=== PATIENT | female | born 1995 | race Caucasian/White ===

== ENCOUNTER 2016-10-29 19:47 | Emergency (ER) | payer BC ==
[~2016-10-29] VITALS: Ht 157.5 cm; Wt 88.0 kg
[~2016-10-29 19:47] MED LIST: FAMO-18 PO; LOPE2CAP PO; ONDA4TAB8 PO
[2016-10-29 19:51] VITALS: Ht 157.5 cm; Wt 88.0 kg
[2016-10-29] MEDS ORDERED: AMOX1TAB10 PO (21:14)
[2016-10-29] MEDS ORDERED: IBUP-1542 PO (21:14)
--- NOTE | 2016-10-29 21:34 | ERD ---
ER Documentation Chief Complaint Date/Time DATE: 10/29/16 TIME: 21:25 Chief Complaint sp dog bite,,left middle finger laceration HPI 21-year-old female presents to emergency department for a dog bite wound on the left middle finger area dorsal aspect of the hand, after being bitten by a stray dog today. Patient is complaining of pain throbbing pain 6/10 scale, is worse upon touching the area, bleeding is controlled at this time. Patient denies any joint involvement, tendon involvement, able to move the joints of the left hand and fingers without any restriction. ROS All systems reviewed and are negative except as per history of present illness. Medications Home Meds Active Scripts Ibuprofen* (Motrin*) 600 Mg Tab, 600 MG PO Q6H Y for PAIN AND OR ELEVATED TEMP, #30 TAB Prov:JESUS CARLSON NP 10/29/16 Amoxicillin/Potassium Clav (Amox-Clav 875-125 mg Tablet) 875-125 mg Tab, 1 TAB PO BID for 7 Days, #14 TAB Prov:JESUS CARLSON NP 10/29/16 Loperamide Hcl* (Imodium*) 2 Mg Capsule, 2 MG PO .AFTER EA LOOSE BM Y for DIARRHEA, #8 TAB Prov:GADIEL RAHMAN PA-C 02/26/16 Famotidine* (Pepcid*) 20 Mg Tablet, 20 MG PO BID for 14 Days, TAB Prov:GADIEL RAHMAN PA-C 02/26/16 Ondansetron Hcl* (Zofran*) 4 Mg Tablet, 4 MG PO Q6H for NAUSEA AND/OR VOMITING, #30 TAB Prov:GADIEL RAHMAN PA-C 02/26/16 Allergies Allergies: Coded Allergies: No Known Allergy (Unverified , 04/15/14) PMhx/Soc Last tetanus vaccine was one year ago. Medical and Surgical Hx: pt denies Medical Hx, pt denies Surgical Hx History of Surgery: No Anesthesia Reaction: No Hx Neurological Disorder: No Hx Respiratory Disorders: No Hx Cardiac Disorders: No Hx Psychiatric Problems: No Hx Miscellaneous Medical Probl: No Hx Alcohol Use: No Hx Substance Use: No Hx Tobacco Use: No Smoking Status: Never smoker FmHx Family History: No coronary disease, No diabetes, No other Physical Exam Vitals Vital Signs Date Time Temp Pulse Resp B/P Pulse Ox O2 Delivery O2 Flow Rate FiO2 10/29/16 21:56 98.2 68 18 115/68 98 Room Air 10/29/16 21:37 94 100 Room Air 10/29/16 19:51 98.2 119 20 128/90 100 Physical Exam GENERAL: The patient is well developed and appropriate for usual state of health, in no apparent distress. CHEST: Clear to auscultation bilaterally. There are no rales, wheezes or rhonchi. HEART: Regular rate and rhythm. No murmurs, clicks, rubs or gallops. No S3 or S4. ABDOMEN: Soft, nontender and nondistended. Good bowel sounds. No rebound or guarding. No gross peritonitis. No gross organomegaly or masses. No Duran sign or McBurney point tenderness. BACK: No midline or flank tenderness. EXTREMITIES: Equal pulses bilaterally. There is no peripheral clubbing, cyanosis or edema. No focal swelling or erythema. Full range of motion. Grossly neurovascularly intact. NEURO: Alert and oriented. Cranial nerves 2-12 intact. Motor strength in all 4 extremities with 5/5 strength. Sensation grossly intact. Normal speech and gait. SKIN: There is no apparent rash or petechia. The skin is warm and dry. HEMATOLOGIC AND LYMPHATIC: There is no evidence of excessive bruising or lymphedema. No gross cervical, axillary, or inguinal lymphadenopathy. Procedures/MDM Procedure note: After patient's verbal consent, the wound was cleaned with diluted Betadine, to cleaning the wound, and Steri-Strip was applied on affected area to partially approximated, still the wound is partially open to drain in case patient's wound getting infected. A Band-Aid was applied afterwards. Medical Decision-making: Patient's symptoms with likely consistent with a dog bite wound, at this time, no tendon involvement, no joint involvement. No symptoms of any neurovascular compromise. No foreign body. Patient was given for ibuprofen, Augmentin, is advised to have the wound checked in 2 days, patient is advised to return to emergency department for any worsening symptoms. Departure Diagnosis: Primary Impression: Dog bite Encounter type: initial encounter Qualified Code: W54.0XXA - Dog bite, initial encounter Condition: Stable Patient Instructions: Dog Bite JESUS CARLSON NP October 29, 2016 21:34
[2016-10-29 21:56] VITALS: BP 115/68; PULSE 68; RESP 18; TEMP 98.2
== END 2016-10-29 21:58 | disposition home or self-care (01) ==
LOC: FTE 19:47
DX: S61.253A Open bite of left middle finger without damage to nail, initial encounter (principal); W54.0XXA Bitten by dog, initial encounter; Y92.9 Unspecified place or not applicable
CPT/HCPCS: 99283

== ENCOUNTER 2017-02-08 18:38 | Emergency (ER) | payer SELFPAY ==
[~2017-02-08] VITALS: Ht 160 cm; Wt 83.0 kg
[~2017-02-08 18:38] MED LIST changes: +AMOX1TAB10 PO; -FAMO-18 PO; +FAMO-96 PO; +IBUP-1542 PO
[2017-02-08 18:43] VITALS: Ht 160 cm; Wt 83.0 kg
[2017-02-08] MEDS ORDERED: LIDOCAINE 1% (MDV) 20 ML INJ SC ONE (19:30)
[2017-02-08] MEDS ORDERED: IBUP-1542 PO (19:40)
--- NOTE | 2017-02-08 19:45 | RADRPT ---
PROCEDURE: XR Forearm. CLINICAL INDICATION: Pain. Injury. TECHNIQUE: AP and lateral views of the right forearm were obtained. COMPARISON: No prior studies are available for comparison. FINDINGS: There is no evidence of fracture or dislocation. The joint spaces are maintained. The bony mineralization is normal. Skin defect over ventral mid forearm suggest laceration. No radiopaque foreign body identified. IMPRESSION: 1. Skin defect over ventral mid form suggest laceration. 2. No radiopaque foreign body identified. 3. No evidence of fracture or dislocation. RPTAT: QQ .Donny Stewart MD, Date Time Electronically viewed and signed by .Donny Stewart MD, on 02/08/2017 19:45 .M/
--- NOTE | 2017-02-08 19:49 | ERD ---
ER Documentation Chief Complaint Date/Time DATE: 02/08/17 TIME: 19:45 Chief Complaint laceration to LFA HPI This 21-year-old female presents with a laceration to her left forearm. She works at [employer]. She sustained a laceration cleaning up a broken glass and being cut by a piece of glass sticking out of the garbage. Her tetanus is up-to-date. She denies restricted range of motion weakness. ROS All systems reviewed and are negative except as per history of present illness. Medications Home Meds Active Scripts Ibuprofen* (Motrin*) 600 Mg Tab, 600 MG PO Q6, #15 TAB Prov:PEGGY KATZ MD 02/08/17 Ibuprofen* (Motrin*) 600 Mg Tab, 600 MG PO Q6H Y for PAIN AND OR ELEVATED TEMP, #30 TAB Prov:JESUS CARLSON NP 10/29/16 Amoxicillin/Potassium Clav (Amox-Clav 875-125 mg Tablet) 875-125 mg Tab, 1 TAB PO BID for 7 Days, #14 TAB Prov:JESUS CARLSON NP 17 Loperamide Hcl* (Imodium*) 2 Mg Capsule, 2 MG PO .AFTER EA LOOSE BM Y for DIARRHEA, #8 TAB Prov:GADIEL RAHMAN PA-C 02/26/16 Famotidine* (Pepcid*) 20 Mg Tablet, 20 MG PO BID for 14 Days, TAB Prov:GADIEL RAHMAN PA-C 02/26/16 Ondansetron Hcl* (Zofran*) 4 Mg Tablet, 4 MG PO Q6H for NAUSEA AND/OR VOMITING, #30 TAB Prov:GADIEL RAHMAN PA-C 02/26/16 Allergies Allergies: Coded Allergies: No Known Allergy (Unverified , 04/15/14) PMhx/Soc History of Surgery: No Anesthesia Reaction: No Hx Neurological Disorder: No Hx Respiratory Disorders: No Hx Cardiac Disorders: No Hx Psychiatric Problems: No Hx Miscellaneous Medical Probl: No Hx Alcohol Use: No Hx Substance Use: No Hx Tobacco Use: No Smoking Status: Never smoker Physical Exam Vitals Vital Signs Date Time Temp Pulse Resp B/P Pulse Ox O2 Delivery O2 Flow Rate FiO2 8/12/17 18:43 98.3 83 18 116/71 100 Physical Exam Const: [] Letter, [id number] per Head: Atraumatic Eyes: Normal Conjunctiva ENT: Normal External Ears, Nose and Mouth. Neck: Full range of motion..~ No meningismus. Resp: Clear to auscultation bilaterally Cardio: Regular rate and rhythm, no murmurs Abd: Soft, non tender, non distended. Normal bowel sounds Skin: No petechiae or rashes. There is approximately 3.5 cm laceration to the volar aspect left forearm. There is no restricted range of motion weakness visible tendon defects. Back: No midline or flank tenderness Ext: No cyanosis, or edema Neur: Awake and alert Psych: Normal Mood and Affect Results 24 hrs Current Medications Medications (Trade) Dose Ordered Sig/Myah Route PRN Reason Start Time Stop Time Status Last Admin Dose Admin Lidocaine (Xylocaine 1% (Mdv) 20 ml) 20 ml ONCE ONCE SC 02/08/17 19:30 02/08/17 19:31 DC Procedures/MDM X-ray left forearm 2V Interpreted by me: Bones: [No fracture] Joints: [No dislocation] Foreign body: [None] impression abnormal left forearm x-ray without visible foreign body. Procedure note-left forearm was irrigated copiously with normal saline . 3 cc of lidocaine was used for local infiltration. 5 4-0 nylon sutures were used to approximate the laceration the patient tolerated procedure well and the wound was dressed. 18. Subjective complaints-left forearm laceration sustained on broken glass and garbage bag. Tetanus is up-to-date 19. Objective findings-left forearm laceration approximately 3.5 cm without deficits or foreign body appreciated. 19 B. X-ray and laboratory results-form x-ray shows no foreign body or fracture. 20. Diagnosis-left forearm laceration 21. Findings and diagnosis consistent with patient's account of injury and onset?-Yes 22. Conditions that will impede or delay the patient's recovery? No 23. Treatment rendered-exam history x-ray. The form sutured with 5 4-0 nylon sutures after copious irrigation and local anesthesia Further treatment required-2 day wound check and 7 to 10 days suture removal with occupational medicine clinic of her employer. 24. Patient hospitalized?-No 25. Work status- Able to perform usual work-no Patient can return on-February 09, 2017 Restrictions-limited use left hand without heavy grasping or lifting greater than 10 pounds. Keep wound covered. Departure Diagnosis: Primary Impression: Laceration Condition: Stable Patient Instructions: Laceration, All Additional Instructions: Wound check 2 days with occupational medicine clinic of your employer, and suture removal 7- 10 days. Recheck sooner for fevers, redness, new symptoms. PEGGY KATZ MD Feb 08, 2017 19:49
[2017-02-08 20:04] VITALS: BP 118/70; PULSE 81; RESP 18; TEMP 98.3
== END 2017-02-08 20:04 | disposition home or self-care (01) ==
LOC: FTE 18:38
DX: S51.812A Laceration without foreign body of left forearm, initial encounter (principal); W25.XXXA Contact with sharp glass, initial encounter; Y92.512 Supermarket, store or market as the place of occurrence of the external cause
CPT/HCPCS: 73090

== ENCOUNTER 2018-11-24 09:14 | Emergency (ER) | payer SELFPAY ==
[~2018-11-24] VITALS: Wt 80.0 kg
[2018-11-24 09:21] VITALS: BP 118/65; PULSE 65; RESP 18
== END 2018-11-24 10:32 | disposition left against medical advice (07) ==
LOC: FTE 09:14
DX: Z53.21 Procedure and treatment not carried out due to patient leaving prior to being seen by health care provider (principal)

== ENCOUNTER 2018-12-25 18:56 | Emergency (ER) | payer SELFPAY ==
[~2018-12-25] VITALS: Ht 167.6 cm; Wt 92.1 kg
[2018-12-25 19:05] VITALS: Ht 167.6 cm; Wt 92.1 kg
[2018-12-25] MEDS ORDERED: ACETAMINOPHEN 325 MG TAB PO ONE (21:00)
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
== END 2018-12-25 22:45 | disposition left against medical advice (07) ==
LOC: FTE 18:56
DX: S50.812A Abrasion of left forearm, initial encounter (principal); S50.811A Abrasion of right forearm, initial encounter; V49.40XA Driver injured in collision with unspecified motor vehicles in traffic accident, initial encounter
CPT/HCPCS: 81025; 99282